=== PATIENT | female | born 1970 | race American Indian/Alaskan Native ===

== ENCOUNTER 2017-08-30 15:54 | Emergency (ER) | payer SELFPAY | END 2017-08-30 16:00 | disposition left against medical advice (07) | LOC: ED 15:54 | DX: M27.2 Inflammatory conditions of jaws (principal); Z53.21 Procedure and treatment not carried out due to patient leaving prior to being seen by health care provider ==

== ENCOUNTER 2018-12-01 04:01 | Inpatient (IN) | payer SELFPAY ==
[2018-12-01] MEDS ORDERED: ZOFRAN IV ONE (04:22)
[2018-12-01] MEDS ORDERED: HEPARIN 10,000 UNITS/10 ML IV ONE (04:22)
[2018-12-01] MEDS ORDERED: PLAVIX PO ONE ×3 (04:22→06:00)
--- NOTE | 2018-12-01 04:24 | Emergency Department Report ---
ED Chest Pain HPI - General Chief Complaint: Chest Pain Stated Complaint: STEMI Time Seen by Provider: 12/01/18 04:17 Source: patient, EMS Mode of arrival: Stretcher Limitations: Physical Limitation - History of Present Illness Initial Comments: 48-year-old female who appears medical history presents to ED with chest pain. Patient states she was awoken from sleep approximately one hour ago with chest pain, nonradiating. Also reports nausea. Upon EMS arrival EKG was signed and transmitted which showed a inferolateral STEMI. EMS reports systolic BP in the 90s in the field. Patient given Aspirin and IV fluids. Currently reporting 06/15 substernal chest pain. Patient reports tobacco use. MD Complaint: chest pain -: hour(s) (1) Onset: awoke with symptoms Pain Location: substernal Pain Radiation: none Severity: severe Severity scale (0 -10): 10 Quality: tightness Consistency: constant Improves With: nothing Worsens With: nothing re: nausea, dyspnea. denies: vomting Treatments Prior to Arrival: aspirin, oxygen - Related Data Previous Rx's Medication Instructions Recorded Last Taken Type HYDROcodone/APAP 7.5-325 [[place] 1 each PO Q4-6H PRN #20 tablet 08/27/14 Unknown Rx 7.5-325 mg TAB] Sulfamethoxazole/Trimethoprim 1 each PO Q12H #20 tablet 08/27/14 Unknown Rx [Bactrim Ds] Ibuprofen [Motrin] 800 mg PO Q8HR PRN #20 tablet 08/28/16 Unknown Rx Penicillin Vk [Veetids TAB] 250 mg PO QID #28 tablet 08/28/16 Unknown Rx Allergies Allergy/AdvReac Type Severity Reaction Status Date / Time iodine Allergy Unknown Verified 08/27/14 13:28 Heart Score - HEART Score History: Highly suspicious EKG: Significant ST-depression Age: 45-65 Risk factors: No known risk factors Troponin: < normal limit HEART Score: 5 - Critical Actions Critical Actions: 4-6 pts:12-16.6% risk of adverse cardiac event. Should be admitted ED Review of Systems ROS: Stated complaint: STEMI Other details as noted in HPI Comment: All other systems reviewed and negative Respiratory: shortness of breath Cardiovascular: chest pain Gastrointestinal: nausea ED Past Medical Hx - Past Medical History Previous Medical History?: No - Surgical History Past Surgical History?: No - Social History Smoking Status: Current Every Day Smoker Substance Use Type: Alcohol, Marijuana - Medications Home Medications: Home Medications Medication Instructions Recorded Confirmed Last Taken Type HYDROcodone/APAP 7.5-325 [[place] 1 each PO Q4-6H PRN #20 tablet 08/27/14 Unknown Rx 7.5-325 mg TAB] Sulfamethoxazole/Trimethoprim 1 each PO Q12H #20 tablet 08/27/14 Unknown Rx [Bactrim Ds] Ibuprofen [Motrin] 800 mg PO Q8HR PRN #20 tablet 08/28/16 Unknown Rx Penicillin Vk [Veetids TAB] 250 mg PO QID #28 tablet 08/28/16 Unknown Rx ED Physical Exam - General Limitations: Physical Limitation General appearance: alert, other (appears uncomfortable) - Head Head exam: Present: atraumatic, normocephalic - Eye Eye exam: Present: normal appearance - ENT ENT exam: Present: mucous membranes moist - Neck Neck exam: Present: normal inspection - Respiratory Respiratory exam: Present: normal lung sounds bilaterally. Absent: respiratory distress - Cardiovascular Cardiovascular Exam: Present: normal rhythm, bradycardia - GI/Abdominal GI/Abdominal exam: Present: soft. Absent: distended, tenderness - Extremities Exam Extremities exam: Present: normal inspection - Neurological Exam Neurological exam: Present: alert, oriented X3 - Psychiatric Psychiatric exam: Present: normal affect, normal mood - Skin Skin exam: Present: warm, dry, intact, normal color ED Course Vital Signs 12/01/18 04:11 Pulse Rate 60 Respiratory 14 Rate Blood Pressure 101/62 [Right] O2 Sat by Pulse 100 Oximetry ED Medical Decision Making - Lab Data Result diagrams: 12/01/18 04:15 12/01/18 04:15 - EKG Data -: EKG Interpreted by [place] EKG shows normal: sinus rhythm, axis, intervals, QRS complexes Rate: bradycardia (rate 51) - EKG Data Interpretation: acute AR (inferolateral), other (ST elevations in lead II, III, aVF, V3-6; ST depressions I, aVL) - Medical Decision Making 48-year-old female with acute AR, ST elevations seen in inferior lateral leads. Prehospital code STEMI was called. At that time EKG was sent to auto body service mechanic, Dr. Cutler. Upon ED arrival while patient remained bradycardic into the 50s, with normal low blood pressure, systolic BP in the 100s. Patient was given aspirin by EMS. Heparin bolus given and heparin drip initiated here in ED. IV fluids given. Patient was also given 600 mg of Plavix. Patient was immediately transported to the laborer filter plant for interventional cardiac cath. Dr. Benitez, hospitalist, made aware of patient. - Differential Diagnosis STEMI Critical Care Time: Yes Critical care time in (mins) excluding proc time.: 35 Critical care attestation.: If time is entered above; I have spent that time in minutes in the direct care of this critically ill patient, excluding procedure time. Critical Care Time: 35 minutes ED Disposition Clinical Impression: STEMI (ST elevation myocardial infarction) Disposition: -09 OP ADMIT IP TO THIS HOSP Is pt being admited?: Yes Condition: Critical Referrals: LUKE AQUINO MD [Primary Care Provider] - 3-5 Days Time of Disposition: 04:29
[2018-12-01 04:29] LABS: Hematocrit 41.8 % (30.3-42.9); Mean Corpuscular HGB Conc 34 % (30-34); Mean Corpuscular Volume 95 fl (79-97); Platelet Count 343 K/mm3 (140-440); Red Cell Distribution Width 13.1 % (13.2-15.2)
[2018-12-01] MEDS ORDERED: ATROPINE 0.1% (CARDIAC) ONE ×2 (04:29→04:34)
[2018-12-01] MEDS ORDERED: HEPARIN 10,000 UNITS/10 ML ONE (04:32)
[2018-12-01] MEDS ORDERED: HEPARIN/NS 5000 UNIT/500ML(CATH LAB) 1,000 ML IR ONE (04:32)
[2018-12-01 04:33] LABS: INR 1.02 (0.87-1.13)
[2018-12-01] MEDS ORDERED: XYLOCAINE CARDIAC IV ONE (04:33)
[2018-12-01] MEDS ORDERED: INTROPIN DRIP 800 MG/D5W 250 ML 800 MG/250 ML BAG IV ONE (04:33)
[2018-12-01] MEDS ORDERED: NITROGLYCERIN SYRINGE 0 ML ONE (04:33)
[2018-12-01] MEDS ORDERED: XYLOCAINE 2% INFILTRATI ONE (04:33)
[2018-12-01] MEDS ORDERED: ADRENALIN ONE (04:34)
[2018-12-01] MEDS ORDERED: NEO SYNEPHRINE/NS Syringe(OR USE) IV ONE (04:34)
[2018-12-01] MEDS ORDERED: BENADRYL ONE (04:39)
[2018-12-01] MEDS ORDERED: SOLU-Medrol ONE (04:40)
[2018-12-01 04:43] LABS: Partial Thromboplastin Time 80.1 Sec. (24.2-36.6)
[2018-12-01] MEDS ORDERED: PEPCID IV ONE (04:45)
[2018-12-01] MEDS ORDERED: AGGRASTAT DRIP (12.5 MG/250 ML) 12,500 MCG/250 ML BAG IV ONE (04:54)
[2018-12-01] MEDS ORDERED: HEPARIN/NS 5000 UNIT/500ML(CATH LAB) 500 ML IR ONE ×3 (04:54→05:14)
[2018-12-01 04:58] LABS: BUN/Creatinine Ratio 11; Blood Urea Nitrogen 8 mg/dL (7-17)
[2018-12-01] MEDS ORDERED: HEPARIN/ 0.45% NACL-25,000 UNIT/500 ML 25,000 UNIT/500 ML BAG IV SCH (05:00)
[2018-12-01 05:07] LABS: Hemolysis Index 0
[2018-12-01 05:08] LABS: Calcium QNS mg/dL (8.4-10.2)
[2018-12-01] MEDS ORDERED: NACL 0.9% 1000 ML 1,000 ML ONE (05:10)
[2018-12-01 05:50] LABS: Basophils % (Manual) 0 % (0.0-1.8); Eosinophils % (Manual) 0 % (0.0-4.3); Total Cells Counted 100
[2018-12-01 05:51] LABS: RBC Morphology Normal
[2018-12-01] MEDS: NACL 0.9% 1000 ML 1,000 ML IV SCH ×2 (06:00→18:24)
[2018-12-01] MEDS: AGGRASTAT DRIP (12.5 MG/250 ML) 12,500 MCG/250 ML BAG IV SCH ×2 (06:00→12:51)
[2018-12-01] MEDS ORDERED: ZOFRAN IV PRN (06:28)
[2018-12-01] MEDS ORDERED: MORPHINE IV PRN ×2 (06:28→07:05)
[2018-12-01] MEDS ORDERED: D50W (25GM) Syringe IV PRN (06:31)
--- NOTE | 2018-12-01 07:51 | Progress Note ---
Subjective Date of service: 12/01/18 Interval history: H and P, cath report dictated. Pt is revisited in CCU and doing well. Course and plan of care d/w pt, family, and rn. Objective Vital Signs Temp Pulse Resp BP BP Pulse Ox 12/01/18 07:30 96 H 26 H 162/93 100 12/01/18 07:20 91 H 18 162/93 100 12/01/18 07:10 75 21 165/93 100 12/01/18 07:00 79 22 165/93 99 12/01/18 06:52 97.8 F 12/01/18 06:50 84 22 148/94 98 12/01/18 06:40 63 14 159/96 99 12/01/18 06:30 69 22 169/102 100 12/01/18 06:20 82 23 12/01/18 06:16 68 12/01/18 04:11 60 14 101/62 100 - Labs and Meds Coagulation 12/01/18 Range/Units 04:15 PT 13.8 (12.2-14.9) Sec. INR 1.02 (0.87-1.13) APTT 80.1 H* (24.2-36.6) Sec. CBC 12/01/18 Range/Units 04:15 WBC 8.3 (4.5-11.0) K/mm3 RBC 4.40 (3.65-5.03) M/mm3 Hgb 14.0 (10.1-14.3) gm/dl Hct 41.8 (30.3-42.9) % Plt Count 343 (140-440) K/mm3 Lymph # Last Ironer Comprehensive Metabolic Panel 12/01/18 Range/Units 04:15 Sodium 143 (137-145) mmol/L Potassium 3.6 (3.6-5.0) mmol/L Chloride 108.0 H (98-107) mmol/L Carbon Dioxide 23 (22-30) mmol/L BUN 8 (7-17) mg/dL Creatinine 0.7 (0.7-1.2) mg/dL Glucose 243 H (65-100) mg/dL Calcium QNS
--- NOTE | 2018-12-01 08:14 | History and Physical Report ---
CHIEF COMPLAINT: Chest pain. HISTORY OF PRESENTING ILLNESS: The patient is a 48-year-old female who started having sharp chest pain going on for some hours prior to presentation. Pain did not radiate and was associated with shortness of breath, nausea, and also diaphoresis. EMS was called, and on arrival, EKG was done that shows ST elevation, STEMI. The patient was given IV fluid and aspirin and transported to the Emergency Room. PAST MEDICAL HISTORY: Pertinent for diabetes mellitus. PAST SURGICAL HISTORY: Unremarkable. FAMILY HISTORY: Noncontributory. SOCIAL HISTORY: The patient smokes cigarettes, drinks alcohol, and uses marijuana. MEDICATIONS: The patient is on [place] 7.5/325 mg 1 by mouth every 4 hours as needed for pain. Also, the patient is on ibuprofen 800 mg by mouth every 8 hours as needed for pain. ALLERGIES: THE PATIENT IS ALLERGIC TO IODINE. REVIEW OF SYSTEMS: CONSTITUTIONAL: There is no fever, no chills. Diaphoresis is present. HEENT: There is no headache or sore throat. CARDIOVASCULAR SYSTEM: Chest pain is present. No orthopnea. RESPIRATORY SYSTEM: Shortness of breath is present. No cough. GASTROINTESTINAL SYSTEM: There is nausea and vomiting, but no abdominal pain, diarrhea, or constipation. NEUROLOGICAL SYSTEM: There is no numbness, no dizziness, no altered mental status. MUSCULOSKELETAL SYSTEM: There is no joint pain or swelling. DERMATOLOGICAL SYSTEM: There is no skin rash or itching. GENITOURINARY SYSTEM: There is no dysuria, hematuria, or flank pain. Rest of system review is normal. PHYSICAL EXAMINATION: GENERAL: At the time of exam, the patient was found to be alert, oriented x 3, not in acute distress. VITAL SIGNS: At the initial time of presentation showed normal temperature with pulse of 60, respirations 14, blood pressure 101/62, O2 sat of 100% on room air. HEENT: Showed pupils to be equal, round, reactive to light and accommodation. Extraocular muscles were intact. NECK: Supple with no JVD or carotid bruit. CARDIOVASCULAR SYSTEM: Showed normal first and second heart sounds with no gallops or murmurs. RESPIRATORY SYSTEM: Showed good air entry on both sides of the lung with no abnormal breath sounds. GASTROINTESTINAL SYSTEM: Showed abdomen to be full, soft, nontender with no organomegaly or rigidity. PELVIC: The patient's right groin area showed dressing where the patient has already had cardiac catheterization. NEUROLOGICAL SYSTEM: Showed no focal deficit. MUSCULOSKELETAL SYSTEM: Showed no joint swelling or tenderness. DERMATOLOGICAL SYSTEM: Showed no skin rash. GENITOURINARY SYSTEM: Showing no costovertebral angle tenderness. PERTINENT LABORATORY DATA AND IMAGING STUDIES. The patient has CBC done that came back unremarkable except for CBC differential that showed high lymphocyte count of 49%. The patient's coagulation studies show high PTT of 80 and the patient's chemistry showed elevated blood glucose level of 243 with normal troponin level. DIAGNOSIS: ST-elevation myocardial infarction. PLAN OF CARE: 1. The patient will be admitted to ICU having had cardiac catheterization done by the hardware technician. 2. The patient will continue Cardiology consult with Dr. Cutler who has already done the cardiac cath with some orders in place for the patient. 3. The patient will be on IV Zofran 4 mg every 8 hours as needed for nausea and vomiting. 4. The patient will be on IV morphine 2 mg every 3 hours as needed for pain. 5. The patient will be on IV normal saline at 75 mL an hour. 6. The patient will continue on the standing orders given by the Cardiology. 7. The patient will be on Accu-Chek q. 6 hours followed by low-dose sliding scale using Regular insulin covering. JOB# [id number] OCN/NTS
--- NOTE | 2018-12-01 08:35 | Cardiac Catherization Report ---
INDICATION FOR PROCEDURE: Ms. Chapman is a pleasant 48-year-old female who presents here with several hours of chest pain, inferior ST elevation, bradycardia and hypotension. PROCEDURE IN DETAIL: The patient was brought to the dairy and food laboratory assistant in urgent fashion, prepped and draped in sterile fashion, 8 mL of 2% lidocaine used to anesthetize the right groin. A standard 6-Amharic sheath placed in the right common femoral artery via modified Seldinger technique. Standard 7-Amharic sheath used to cannulate the right femoral vein. Given bradycardia and hypotension, we opened up the patient's fluid. She has been loaded with heparin, aspirin, Plavix. A balloon tipped temporary pacemaker was placed in the right ventricular apex under fluoroscopic guidance, functioning normally. Backup heart rate set at 50. Next, we turned our attention to left heart cath. A JL4 catheter used to engage the left main. No dampening or ventricularization. Cineangiography performed in all projections. Next, a JR4 guide used to engage the right groin. No dampening or ventricularization. Cineangiography performed in all projections. See PCI details. After PCI, the JR4 guide was passed across the aortic valve over a wire under fluoroscopic guidance. Left ventriculography performed in 30-degree CASILLAS projection via hand injections. Catheter flushed. Manual pullback performed with continuous pressure monitoring. DATA: The patient was initially bradycardic with heart rates in the 40s and 50s. Aortic pressure was initially in the 90s and 100 systolic. Post-PCI aortic pressure is 160/90. LV pressure is 160. LVP of 20 mmHg. Left ventriculography reveals severe inferior dyskinesis with an estimated ejection fraction of 40% to 45%. No significant mitral regurgitation. No evidence of aortic stenosis. The patient also from a rhythm standpoint had multiple episodes of AIVR, nonsustained VT. 30 minutes critical care time was spent monitoring this. CORONARY ANATOMY: Right coronary reveals severe subtotal occlusion in the proximal segment with heavy thrombus burden in the proximal, mid and distal right coronary. MILV[place] 2 flow was identified. Left main without significant disease, bifurcates to left anterior descending and left circumflex. Left circumflex, moderate sized vessel, courses AV groove. No significant disease. LAD is a moderate sized vessel, courses anterior intergroove, wraps around the apex. No significant disease of LAD, diagonal or circumflex system. At this point, we turned our attention to PCI. A JR4 guide was used to engage the right coronary without difficulty. The patient started on Aggrastat, already on heparin, aspirin and Plavix. Given the heavy thrombus burden, Aggrastat drip also started. Once labs were confirmed to be okay, I used a [place] wire to cross the lesion without difficulty. We used a 2.5 x 12 balloon to dilate the proximal vessel. This improved flow, but distal thrombus is noted now and the thrombus moved distally. Again, there was heavy thrombus burden. At this point, I decided to use AngioJet rheolytic thrombectomy. Multiple passes were made proximally. We used a double wire technique to use AngioJet distally. 4-5 passes were made distally. Significant improvement, however, the clot moved a bit distally into the right PDA. Still clot burden despite multiple passes of AngioJet. At this point, I proceeded with PCI of the culprit vessel with a 3.5 x 22 Resolute [place] drug-eluting stent at 12 DONNA for 30 seconds. Excellent angiographic result. Next, there remains a distal cutoff. Thus, I decided to take a different approach and used manual thrombectomy using [place] catheter. Multiple passes were made distally with minimal improvement of this clot. Next, intravascular ultrasound was performed and reveals a well-apposed and well expanded stent. No other significant disease in the right coronary. The final angiogram reveals excellent result. A very distal right PDA cut off with thrombus. Again, despite multiple attempts with AngioJet and manual thrombectomy/[place] unable to improve this. We will continue Aggrastat. Chest pain is significantly resolved. EKG reveals continued ST elevation. I directly supervised the administration of moderate sedation from 4:39 a.m. to 5:34 a.m. CONCLUSIONS: 1. Complex heavy thrombus burden, atherothrombotic occlusion of the proximal right coronary. Successful IVUS guided and rheolytic thrombectomy/manual thrombectomy guided primary PCI, placement of drug-eluting stent ([place] Resolute 3.5 x 22) with excellent final angiographic and ultrasonographic results. 2. Heavy thrombus burden, small distal area of thrombus remains despite multiple passes of manual thrombectomy and rheolytic thrombectomy. Continue Aggrastat therapy, aspirin and Plavix. The patient is clinically significantly improved. 3. No significant coronary artery disease in left system. 4. Left ventriculography reveals inferior dyskinesis with overall ejection fraction of 40% to 45%. 5. Successful fluoroscopic-guided placement of a balloon tipped temporary venous pacemaker via the right femoral vein. 6. No evidence of aortic stenosis. At this point, the patient is clinically and electrically improved. She is still having some AIVR. EKG reveals a recalcitrant ST elevation inferiorly. At this point, we will continue aspirin, Plavix, IIb/IIIa. If her blood pressure tolerates, we will start low dose beta guera. Pull sheath once ACT less than 170. Will consider pulling the pacemaker if she remains electrically stable in several hours. Results of procedure were explained to the patient and family. All questions and concerns were addressed. The patient will be monitored closely in ICU. JOB# [id number] RANDAL/BIB
[2018-12-01] MEDS: COREG PO SCH ×2 (10:02→21:47)
[2018-12-01] MEDS: PLAVIX PO SCH (10:02)
[2018-12-01] MEDS: ECOTRIN PO SCH (10:02)
[2018-12-01] MEDS: HumuLIN R SUB-Q SCH (12:00)
--- NOTE | 2018-12-01 12:19 | Event Note ---
Date: 12/01/18 Patient seen and examined, awaiting Echo otherwise stable, no new complaints. Discussed with Nursing staff. Continue current management as directed by cardiology
--- NOTE | 2018-12-01 12:47 | Consultation ---
History of Present Illness Consult date: 12/01/18 Requesting physician: NANCY SANCHEZ Reason for consult: other (STEMI) History of present illness: PULMONARY/CCM CONSULT NOTE (Full dictation # [id number]) Please see dictated notes for full details Medications and Allergies Allergies Allergy/AdvReac Type Severity Reaction Status Date / Time iodine Allergy Unknown Verified 08/27/14 13:28 Home Medications Medication Instructions Recorded Confirmed Last Taken Type Aspirin EC [Aspirin Enteric Coated 325 mg PO QDAY #30 tablet 12/03/18 Unknown Rx TAB] AtorvaSTATin [Lipitor] 80 mg PO QHS #90 tablet 12/03/18 Unknown Rx Carvedilol [Coreg] 3.125 mg PO BID #60 tablet 12/03/18 Unknown Rx Clopidogrel [Plavix] 75 mg PO QDAY #30 tablet 12/03/18 Unknown Rx Loperamide [Imodium] 2 mg PO Q2H PRN #30 capsule 12/03/18 Unknown Rx Active Meds: Active Medications Acetaminophen (Tylenol) 650 mg PO Q4H PRN PRN Reason: Fever >101 Aspirin (Ecotrin) 325 mg PO QDAY [facility] Last Admin: 12/01/18 10:02 Dose: 325 mg Documented by: Atorvastatin Calcium (Lipitor) 80 mg PO QHS [facility] Carvedilol (Coreg) 3.125 mg PO BID [facility] Last Admin: 12/01/18 10:02 Dose: 3.125 mg Documented by: Clopidogrel Bisulfate (Plavix) 75 mg PO QDAY [facility] Last Admin: 12/01/18 10:02 Dose: 75 mg Documented by: Dextrose (D50w (25gm) Syringe) 50 ml IV PRN PRN PRN Reason: Hypoglycemia Heparin Sodium/Sodium Chloride (Heparin/ 0.45% Nacl-25,000 Unit/500 Ml) 25,000 unit in 500 mls @ 20 mls/hr IV TITRATE JORDYN; Protocol Tirofiban/Sodium Chloride (Aggrastat Drip (12.5 Mg/250 Ml)) 12,500 mcg in 250 mls @ 18 mls/hr IV DIRECT JORDYN; Protocol Stop: 12/02/18 00:00 Last Admin: 12/01/18 06:00 Dose: 18 mls/hr Documented by: Sodium Chloride (Nacl 0.9% 1000 Ml) 1,000 mls @ 75 mls/hr IV DIRECT JORDYN Last Admin: 12/01/18 06:00 Dose: 75 mls/hr Documented by: Insulin Human Regular (Humulin R) 0 units SUB-Q Q6HR JORDYN; Protocol Morphine Sulfate (Morphine) 2 mg IV Q3H PRN PRN Reason: Pain, Moderate (4-6) Ondansetron HCl (Zofran) 4 mg IV Q8H PRN PRN Reason: Nausea And Vomiting Physical Examination Vital signs: Vital Signs Pulse Resp BP Pulse Ox 60 14 101/62 100 12/01/18 04:11 12/01/18 04:11 12/01/18 04:11 12/01/18 04:11 Results - Laboratory Findings CBC and BMP: 12/03/18 05:05 12/03/18 11:53 PT/INR, D-dimer PT 13.8 Sec. (12.2-14.9) 12/01/18 04:15 INR 1.02 (0.87-1.13) 12/01/18 04:15 Abnormal lab findings: Abnormal Labs 12/01/18 12/01/18 12/01/18 04:15 04:15 04:15 RDW 13.1 L Lymphocytes % (Manual) 49.0 H APTT 80.1 H* Chloride 108.0 H Glucose 243 H POC Glucose Troponin T 12/01/18 12/01/18 10:33 12:44 RDW Lymphocytes % (Manual) APTT Chloride Glucose POC Glucose 137 H Troponin T 3.120 H* D
[2018-12-01 13:06] LABS: Chol/HDL Ratio 3.17 %
--- NOTE | 2018-12-01 14:04 | XRay Report ---
FINAL REPORT EXAM: XR CHEST 1V AP HISTORY: chest pain TECHNIQUE: Frontal chest radiograph. PRIORS: None. FINDINGS: The cardiomediastinal silhouette is normal. No focal consolidation. No pleural effusion. No pneumothorax. No acute osseous abnormality. IMPRESSION: No acute cardiopulmonary process.
--- NOTE | 2018-12-01 14:41 | Consultation ---
CARDIOLOGY CONSULTATION REFERRING PHYSICIAN: Dr. Martel in the Emergency Room. REASON FOR CONSULTATION: Advice regarding ST elevation myocardial infarction. HISTORY OF PRESENT ILLNESS: The patient is a pleasant 48-year-old -[place] female who is not plugged in the medical system and has no known medical history aside from tobacco abuse, presents with 1-2 hours of crushing chest pain. She is brought by EMS, found to have bradycardia, inferior ST elevation, and hypotension. STEMI protocol was activated. She does have nausea and has not vomited. Does have diaphoresis. No abdominal pain, hematochezia, melena, hemoptysis, or hematemesis. No history of bleeding. No blurred vision, headache, fevers, chills, or rash. She does have an iodine allergy. She was appropriately premedicated with H1, H2 blockade as well as Solu-Medrol. STEMI protocol was activated. PAST MEDICAL HISTORY: None known. SOCIAL HISTORY: Active tobacco abuse, marijuana use. FAMILY HISTORY: Positive for coronary artery disease. ALLERGIES: IODINE. REVIEW OF SYSTEMS: As per HPI. PHYSICAL EXAMINATION: VITAL SIGNS: On approach, blood pressure is 90/60, heart rate in the 50s. O2 sats 98% on room air. GENERAL: The patient is in mild distress. HEENT: Sclerae icteric. NECK: Supple, no masses, no JVD. CHEST: Clear to auscultation bilaterally. Good air movement. CARDIOVASCULAR: Regular S1, S2. ABDOMEN: Soft, nontender, nondistended. Normoactive bowel sounds in all 4 quadrants. No mass or bruits. EXTREMITIES: No cyanosis, clubbing, edema. Good peripheral pulses. SKIN: Intact. No rashes. DATA: EKG reveals inferior ST elevation bradycardia. No labs are available. ASSESSMENT AND PLAN: In summary, the patient is a pleasant 48-year-old -[place] female: 1. Acute inferior ST elevation myocardial infarction complicated by bradycardia and hypotension. 2. Tobacco use. 3. Marijuana use. STEMI protocol has been initiated. The patient has been loaded with aspirin, Plavix and heparin. Further plans contingent on cardiac cath tech course: The patient is going for urgent left heart catheterization and possible PCI. JOB# [id number] SBM/NTS
[2018-12-01] MEDS ORDERED: TRIDIL DRIP 50MG/250ML 50 MG/250 ML BOTTLE IV SCH (15:00)
[2018-12-01] MEDS: TYLENOL PO PRN ×2 (16:03→22:50)
[2018-12-02] MEDS: HumuLIN R SUB-Q SCH ×6 (00:29→22:08)
[2018-12-02 03:33] LABS: Hematocrit 34.7 % (30.3-42.9); Hemoglobin 11.9 gm/dl (10.1-14.3)
[2018-12-02 03:53] LABS: BUN/Creatinine Ratio 20; Blood Urea Nitrogen 10 mg/dL (7-17); Calcium 9.1 mg/dL (8.4-10.2); Creatine Kinase MB 171.3 ng/mL (0.0-4.0); Hemolysis Index 0
[2018-12-02] MEDS: NACL 0.9% 1000 ML 1,000 ML IV SCH (07:55)
[2018-12-02] MEDS: ECOTRIN PO SCH (11:04)
[2018-12-02] MEDS: COREG PO SCH ×2 (11:04→22:04)
[2018-12-02] MEDS: PLAVIX PO SCH (11:04)
[2018-12-02] MEDS: TYLENOL PO PRN (11:12)
--- NOTE | 2018-12-02 12:32 | Progress Note ---
Assessment and Plan 48 yo AAF: 1. s/p inferior STEMI complicated by hypotension and bradycardia * s/p successful IVUS/tvp-guided and manual/rheolytic thrombectomy-assisted primary PCI w/ shanice * clinically vastly improved * cont asa/statin/plavix * nutrition consult * transfer to floor * right groin stable * f/u tte * won't uptitrate bb due to borderline sbp Subjective Date of service: 12/02/18 Interval history: feels much better Objective Vital Signs Temp Pulse Pulse Resp BP Pulse Ox 12/02/18 12:00 82 17 109/68 100 12/02/18 11:12 14 12/02/18 11:04 76 105/58 12/02/18 11:00 72 11 L 125/68 100 12/02/18 10:00 72 10 L 116/65 100 12/02/18 09:00 85 18 116/65 100 12/02/18 08:00 98.4 F 64 79 21 131/80 100 12/02/18 07:00 74 19 127/74 98 12/02/18 06:00 54 L 13 125/76 99 12/02/18 05:00 71 10 L 125/66 99 12/02/18 04:00 99.0 F 85 14 134/88 100 12/02/18 03:00 92 H 18 155/104 98 12/02/18 02:00 82 19 144/89 97 12/02/18 01:00 86 13 146/101 98 12/02/18 00:00 99.3 F 73 14 156/95 97 12/01/18 23:28 61 13 149/77 100 12/01/18 23:00 65 20 145/84 100 12/01/18 22:20 98 12/01/18 22:00 60 145/73 100 12/01/18 21:47 75 130/89 12/01/18 21:00 82 158/94 100 12/01/18 20:00 98.8 F 72 162/91 100 12/01/18 19:00 59 L 15 163/91 100 12/01/18 18:00 72 13 157/92 100 12/01/18 17:00 55 L 21 186/99 12/01/18 16:22 98.7 F 12/01/18 16:00 66 14 154/88 100 12/01/18 15:00 80 14 163/89 12/01/18 14:30 73 19 170/88 12/01/18 14:20 62 21 169/110 12/01/18 14:10 55 L 23 169/110 12/01/18 14:00 60 13 169/110 12/01/18 13:50 71 16 169/110 12/01/18 13:40 66 17 169/110 12/01/18 13:30 86 22 169/110 12/01/18 13:20 66 11 L 169/110 12/01/18 13:10 72 14 169/110 12/01/18 13:00 85 12 169/110 12/01/18 12:50 85 13 140/80 12/01/18 12:40 85 15 140/80 12/01/18 12:30 73 16 140/80 100 - Labs and Meds Cardiac Enzymes 12/02/18 Range/Units 03:13 CK-MB (CK-2) 171.3 H (0.0-4.0) ng/mL Lipids 12/01/18 Range/Units 10:33 Triglycerides 87 (2-149) mg/dL Cholesterol 184 (50-199) mg/dL HDL Cholesterol 58 (40-59) mg/dL Cholesterol/HDL Ratio 3.17 % CBC 12/02/18 Range/Units 03:13 Hgb 11.9 (10.1-14.3) gm/dl Hct 34.7 D (30.3-42.9) % Plt Count 320 (140-440) K/mm3 Comprehensive Metabolic Panel 12/02/18 Range/Units 03:13 Sodium 140 (137-145) mmol/L Potassium 3.5 L (3.6-5.0) mmol/L Chloride 106.6 (98-107) mmol/L Carbon Dioxide 25 (22-30) mmol/L BUN 10 (7-17) mg/dL Creatinine 0.5 L (0.7-1.2) mg/dL Glucose 114 H (65-100) mg/dL Calcium 9.1 (8.4-10.2) mg/dL
--- NOTE | 2018-12-02 12:42 | Event Note ---
Date: 12/02/18 Clinically stable s/p STEMI and PCI seen and examined - no acute issues - will re-evaluate as necessary
[2018-12-02] MEDS ORDERED: K-DUR PO ONE (13:26)
--- NOTE | 2018-12-02 13:26 | Progress Note ---
Assessment and Plan Assessment and plan: Patient is a 48 year old female with past medical hx of Diabetes Mellitus and tobacco abuse Presented with STEMI and underwent a successful IVUS/tvp-guided and manual/rheolytic thrombectomy-assisted primary PCI w/ shanice Chest pain with STEMI * IVUS/tvp-guided and manual/rheolytic thrombectomy-assisted primary PCI w/ shanice Tobacco use disorder Diabetes Mellitus Hypokalemia Bradycardia Hypotension Plan Clinically improved. Extensive education and counselling about tobacco abuse and associated risk Continue ASA/STATIN/PLAVIX Replace K Continue DM management DVT/GI prophy Ok to transfer to Cardiology Plan discussed with patient and family History Interval history: Patient is seen today for: Chest pain Seen and examined at bedside; 24hour events reviewed; nursing staff ; no adverse overnight events reported to me; Denies any chest pain, nausea, vomiting, diarrhea. Patient is status post cardiac cath. No fever noted blood pressure controlled Hospitalist Physical - Physical exam Narrative exam: VITAL SIGNS: Reviewed. GENERAL: The patient appeared well nourished and normally developed. Vital signs as documented. HEAD: No signs of head trauma. EYES: Pupils are equal. Extraocular motions intact. EARS: Hearing grossly intact. MOUTH: Oropharynx is normal. NECK: No adenopathy, no JVD. CHEST: Chest with clear breath sounds bilaterally. No wheezes, rales, or rhon chi. CARDIAC: Regular rate and rhythm. S1 and S2, without murmurs, gallops, or rubs . VASCULAR: No Edema. Peripheral pulses normal and equal in all extremities. ABDOMEN: Soft, without detectable tenderness. No sign of distention. No rebound or guarding, and no masses palpated. Bowel Sounds normal. MUSCULOSKELETAL: Good range of motion of all major joints. Extremities without clubbing, cyanosis or edema. NEUROLOGIC EXAM: Alert and oriented x 3. No focal sensory or strength deficits. Speech normal. Follows commands. PSYCHIATRIC: Mood normal. SKIN: No rash or lesions. - Constitutional Vitals: Temp Pulse Resp BP Pulse Ox 97.7 F 84 17 109/68 100 12/02/18 12:00 12/02/18 12:00 12/02/18 12:00 12/02/18 12:00 12/02/18 12:00 Results - Labs CBC & Chem 7: 12/02/18 03:13 12/02/18 03:13 Labs: Laboratory Last Values WBC 8.3 K/mm3 (4.5-11.0) 12/01/18 04:15 RBC 4.40 M/mm3 (3.65-5.03) 12/01/18 04:15 Hgb 11.9 gm/dl (10.1-14.3) 12/02/18 03:13 Hct 34.7 % (30.3-42.9) D 12/02/18 03:13 MCV 95 fl (79-97) 12/01/18 04:15 MCH 32 pg (28-32) 12/01/18 04:15 MCHC 34 % (30-34) 12/01/18 04:15 RDW 13.1 % (13.2-15.2) L 12/01/18 04:15 Plt Count 320 K/mm3 (140-440) 12/02/18 03:13 Lymph % (Auto) [employer] Prep[employer]ness Training Officer 12/01/18 04:15 Lymph # [employer]ness Training Officer 12/01/18 04:15 Add Manual Diff Complete 12/01/18 04:15 Total Counted 100 12/01/18 04:15 Seg Neuts % (Manual) 47.0 % (40.0-70.0) 12/01/18 04:15 Band Neutrophils % 0 % 12/01/18 04:15 Lymphocytes % (Manual) 49.0 % (13.4-35.0) H 12/01/18 04:15 Reactive Lymphs % (Man) 0 % 12/01/18 04:15 Monocytes % (Manual) 4.0 % (0.0-7.3) 12/01/18 04:15 Eosinophils % (Manual) 0 % (0.0-4.3) 12/01/18 04:15 Basophils % (Manual) 0 % (0.0-1.8) 12/01/18 04:15 Metamyelocytes % 0 % 12/01/18 04:15 Myelocytes % 0 % 12/01/18 04:15 Promyelocytes % 0 % 12/01/18 04:15 Blast Cells % 0 % 12/01/18 04:15 Nucleated RBC % Not Reportable 12/01/18 04:15 Seg Neutrophils # Man 3.9 K/mm3 (1.8-7.7) 12/01/18 04:15 Band Neutrophils # 0.0 K/mm3 12/01/18 04:15 Lymphocytes # (Manual) 4.1 K/mm3 (1.2-5.4) 12/01/18 04:15 Abs React Lymphs (Man) 0.0 K/mm3 12/01/18 04:15 Monocytes # (Manual) 0.3 K/mm3 (0.0-0.8) 12/01/18 04:15 Eosinophils # (Manual) 0.0 K/mm3 (0.0-0.4) 12/01/18 04:15 Basophils # (Manual) 0.0 K/mm3 (0.0-0.1) 12/01/18 04:15 Metamyelocytes # 0.0 K/mm3 12/01/18 04:15 Myelocytes # 0.0 K/mm3 12/01/18 04:15 Promyelocytes # 0.0 K/mm3 12/01/18 04:15 Blast Cells # 0.0 K/mm3 12/01/18 04:15 WBC Morphology Not Reportable 12/01/18 04:15 Hypersegmented Neuts Not Reportable 12/01/18 04:15 Hyposegmented Neuts Not Reportable 12/01/18 04:15 Hypogranular Neuts Not Reportable 12/01/18 04:15 Smudge Cells Not Reportable 12/01/18 04:15 Toxic Granulation Not Reportable 12/01/18 04:15 Toxic Vacuolation Not Reportable 12/01/18 04:15 Dohle Bodies Not Reportable 12/01/18 04:15 Pelger-Huet Anomaly Not Reportable 12/01/18 04:15 Karthik Rods Not Reportable 12/01/18 04:15 Platelet Estimate Appears normal 12/01/18 04:15 Clumped Platelets Not Reportable 12/01/18 04:15 Plt Clumps, EDTA Not Reportable 12/01/18 04:15 Large Platelets Not Reportable 12/01/18 04:15 Giant Platelets Not Reportable 12/01/18 04:15 Platelet Satelliting Not Reportable 12/01/18 04:15 Plt Morphology Comment Not Reportable 12/01/18 04:15 RBC Morphology Normal 12/01/18 04:15 Dimorphic RBCs Not Reportable 12/01/18 04:15 Polychromasia Not Reportable 12/01/18 04:15 Hypochromasia Not Reportable 12/01/18 04:15 Poikilocytosis Not Reportable 12/01/18 04:15 Anisocytosis Not Reportable 12/01/18 04:15 Microcytosis Not Reportable 12/01/18 04:15 Macrocytosis Not Reportable 12/01/18 04:15 Spherocytes Not Reportable 12/01/18 04:15 Pappenheimer Bodies Not Reportable 12/01/18 04:15 Sickle Cells Not Reportable 12/01/18 04:15 Target Cells Not Reportable 12/01/18 04:15 Tear Drop Cells Not Reportable 12/01/18 04:15 Ovalocytes Not Reportable 12/01/18 04:15 Helmet Cells Not Reportable 12/01/18 04:15 [place] Bodies Not Reportable 12/01/18 04:15 [place] Rings Not Reportable 12/01/18 04:15 [place] Cells Not Reportable 12/01/18 04:15 Bite Cells Not Reportable 12/01/18 04:15 Crenated Cell Not Reportable 12/01/18 04:15 Elliptocytes Not Reportable 12/01/18 04:15 Acanthocytes (Spur) Not Reportable 12/01/18 04:15 Rouleaux Not Reportable 12/01/18 04:15 Hemoglobin C Crystals Not Reportable 12/01/18 04:15 Schistocytes Not Reportable 12/01/18 04:15 Malaria parasites Not Reportable 12/01/18 04:15 Nhan Bodies Not Reportable 12/01/18 04:15 Hem Pathologist Commnt No 12/01/18 04:15 PT 13.8 Sec. (12.2-14.9) 12/01/18 04:15 INR 1.02 (0.87-1.13) 12/01/18 04:15 APTT 80.1 Sec. (24.2-36.6) H* 12/01/18 04:15 Activated Clotting Time 131 (74-137) 12/01/18 10:26 Sodium 140 mmol/L (137-145) 12/02/18 03:13 Potassium 3.5 mmol/L (3.6-5.0) L 12/02/18 03:13 Chloride 106.6 mmol/L (98-107) 12/02/18 03:13 Carbon Dioxide 25 mmol/L (22-30) 12/02/18 03:13 Anion Gap 12 mmol/L 12/02/18 03:13 BUN 10 mg/dL (7-17) 12/02/18 03:13 Creatinine 0.5 mg/dL (0.7-1.2) L 12/02/18 03:13 Estimated GFR > 60 ml/min 12/02/18 03:13 BUN/Creatinine Ratio 20 % 12/02/18 03:13 Glucose 114 mg/dL (65-100) H 12/02/18 03:13 POC Glucose 99 (70-105) 12/02/18 12:36 Calcium 9.1 mg/dL (8.4-10.2) 12/02/18 03:13 Total Creatine Kinase 2350 units/L (30-135) H 12/02/18 03:13 CK-MB (CK-2) 171.3 ng/mL (0.0-4.0) H 12/02/18 03:13 CK-MB (CK-2) Rel Index 7.2 (0-4) H 12/02/18 03:13 Troponin T 6.990 ng/mL (0.00-0.029) H* D 12/02/18 03:13 Triglycerides 87 mg/dL (2-149) 12/01/18 10:33 Cholesterol 184 mg/dL (50-199) 12/01/18 10:33 LDL Cholesterol Direct 127 mg/dL (50-130) 12/01/18 10:33 HDL Cholesterol 58 mg/dL (40-59) 12/01/18 10:33 Cholesterol/HDL Ratio 3.17 % 12/01/18 10:33
[2018-12-02 19:58] VITALS: BP 139/82
[2018-12-02] MEDS ORDERED: ALUM-MAG HYDROX-SIMETH 200-200-20MG/5ML PO PRN (21:38)
[2018-12-03 05:42] LABS: Hematocrit 33.8 % (30.3-42.9); Hemoglobin 11.4 gm/dl (10.1-14.3)
[2018-12-03] MEDS: HumuLIN R SUB-Q SCH ×2 (09:01→12:44)
[2018-12-03] MEDS: ECOTRIN PO SCH (09:31)
[2018-12-03] MEDS: COREG PO SCH (09:31)
[2018-12-03] MEDS: PLAVIX PO SCH (09:31)
--- NOTE | 2018-12-03 10:47 | Progress Note ---
Assessment and Plan s/p inferior STEMI complicated by hypotension and bradycardia s/p successful IVUS/tvp-guided and manual/rheolytic thrombectomy-assisted prim jada PCI w/ shanice currently stable cardiac status. cont present cardiac management. F/u BMP, Mg, thyroid profile in setting of NSVT. Diarrhea eval per primary - ruling out C.Diff. The patient has been seen in conjunction with Dr. Lo who agrees with the assessment and plan of care. - Patient Problems (1) STEMI (ST elevation myocardial infarction) Current Visit: Yes Status: Acute (2) CAD (coronary artery disease) Current Visit: Yes Status: Chronic (3) Stented coronary artery Current Visit: Yes Status: Chronic (4) Ischemic cardiomyopathy Current Visit: Yes Status: Chronic (5) Right ventricular systolic dysfunction Current Visit: Yes Status: Chronic (6) Diarrhea Current Visit: Yes Status: Acute Subjective Date of service: 12/03/18 Principal diagnosis: STEMI Interval history: pt resting in bed, no current cardiac complaints. c/o diarrhea overnight. tele reviewed - 7 beat NSVT noted overnight, pt asymptomatic. Objective Last Vital Signs Temp 98.1 F 12/02/18 19:42 Pulse 61 12/03/18 08:26 Resp 20 12/03/18 08:00 BP 139/82 12/02/18 22:04 Pulse Ox 100 12/02/18 20:06 - Physical Examination General: No Apparent Distress HEENT: Positive: PERRL, Normocephaly, Mucus Membranes Moist Neck: Positive: neck supple, trachea midline Cardiac: Positive: Reg Rate and Rhythm, S1/S2 Lungs: Positive: clear to auscultation Neuro: Positive: Grossly Intact Abdomen: Positive: Soft. Negative: Tender Skin: Negative: Rash, Wound Musculoskeletal: No Pain Extremities: Absent: edema - Labs and Meds CBC 12/03/18 Range/Units 05:05 Hgb 11.4 (10.1-14.3) gm/dl Hct 33.8 (30.3-42.9) % Plt Count 292 (140-440) K/mm3 - Imaging and Cardiology EKG: report reviewed, image reviewed Echo: report reviewed (EF 35-40%, RV systolic function severely reduced) Cardiac cath: report reviewed (thrombectomy and PCI of prox RCA, EF 40-45%, temporary pacemaker placed) - Telemetry EKG Rhythm: Sinus Rhythm
[2018-12-03] MEDS ORDERED: IMODIUM PO PRN (12:00)
[2018-12-03 12:56] LABS: BUN/Creatinine Ratio 17; Blood Urea Nitrogen 10 mg/dL (7-17); Calcium 9.1 mg/dL (8.4-10.2); Hemolysis Index 2
--- NOTE | 2018-12-03 14:00 | Progress Note ---
Assessment and Plan Patient alert, awake. resting on room air.No complaint of chest pain or shortness of breath. Patient has history of smoking 1/2 a pack 30 years. Counselled to stop smoking.Patient also has history of sleep apnea. Patient said she is going home to day. Can come to my office as out patient for pulmonary follow up. Recommend PFTs and sleep study as out patient. - Patient Problems (1) STEMI (ST elevation myocardial infarction) Status: Acute Plan to address problem: Management as per cardiology Patient said she has stent placement. (2) CAD (coronary artery disease) Status: Chronic Plan to address problem: Patient has stent placement. Management as per cardiology. (3) Ischemic cardiomyopathy Status: Chronic Plan to address problem: Management as per cardiology. (4) Right ventricular systolic dysfunction Status: Chronic Plan to address problem: PFTs and sleep study as out patient. Recommend to loose weight. Explained sleep hygeine. (5) Stented coronary artery Status: Chronic Plan to address problem: Management as per cardiology. (6) Diarrhea Status: Acute Plan to address problem: Management as per primary care. Subjective Date of service: 12/03/18 Principal diagnosis: STEMI Interval history: Patient alert, awake. resting on room air.No complaint of chest pain or shortness of breath. Patient has history of smoking 1/2 a pack 30 years. Counselled to stop smoking.Patient also has history of sleep apnea. Patient said she is going home to day. Can come to my office as out patient for pulmonary follow up. Recommend PFTs and sleep study as out patient. Objective Vital Signs - 12hr 12/03/18 12/03/18 12/03/18 08:00 08:26 13:57 Pulse Rate 61 Pulse Rate [ 61 Apical] Respiratory 20 Rate O2 Sat by Pulse 99 Oximetry Constitutional: no acute distress, alert Eyes: non-icteric ENT: oropharynx moist Neck: supple, no lymphadenopathy Ascultation: Bilateral: diminished breath sounds (Prolonged expiratory phase.) Cardiovascular: regular rate and rhythm Gastrointestinal: normoactive bowel sounds, soft, non-tender Integumentary: normal Extremities: no cyanosis, no edema Neurologic: normal mental status, non-focal exam, pupils equal and round, CN II- XII normal Psychiatric: mood appropriate CBC and BMP: 12/03/18 05:05 12/03/18 11:53 ABG, PT/INR, D-dimer: PT/INR, D-dimer PT 13.8 Sec. (12.2-14.9) 12/01/18 04:15 INR 1.02 (0.87-1.13) 12/01/18 04:15 Abnormal lab findings: Abnormal Labs 12/01/18 12/01/18 12/01/18 04:15 04:15 04:15 RDW 13.1 L Lymphocytes % (Manual) 49.0 H APTT 80.1 H* Activated Clotting Time Potassium Chloride 108.0 H Creatinine Glucose 243 H POC Glucose Total Creatine Kinase CK-MB (CK-2) CK-MB (CK-2) Rel Index Troponin T 12/01/18 12/01/18 12/01/18 04:48 05:25 10:33 RDW Lymphocytes % (Manual) APTT Activated Clotting Time 180 H 312 H Potassium Chloride Creatinine Glucose POC Glucose Total Creatine Kinase CK-MB (CK-2) CK-MB (CK-2) Rel Index Troponin T 3.120 H* D 12/01/18 12/01/18 12/01/18 12:44 18:08 23:51 RDW Lymphocytes % (Manual) APTT Activated Clotting Time Potassium Chloride Creatinine Glucose POC Glucose 137 H 126 H 108 H Total Creatine Kinase CK-MB (CK-2) CK-MB (CK-2) Rel Index Troponin T 12/02/18 12/02/18 12/03/18 03:13 06:21 11:53 RDW Lymphocytes % (Manual) APTT Activated Clotting Time Potassium 3.5 L Chloride Creatinine 0.5 L 0.6 L Glucose 114 H 107 H POC Glucose 116 H Total Creatine Kinase 2350 H CK-MB (CK-2) 171.3 H CK-MB (CK-2) Rel Index 7.2 H Troponin T 6.990 H* D Chest x-ray: report reviewed
--- NOTE | 2018-12-03 15:53 | Discharge Summary ---
Providers - Providers Date of Admission: 12/01/18 06:40 Attending physician: JULIETTE JONES MD 12/01/18 Consult to Cardiac Rehabilitation [CONS] Routine Reason For Exam: post pci 12/01/18 04:21 Consult to Cardiology [CONS] Stat Consulting Provider: NANCY SANCHEZ Reason For Exam: STEMI 12/01/18 07:55 Consult to Physician [CONS] Routine Comment: Consulting Provider: JULIETTE JONES Physician Instructions: Reason For Exam: stemi 12/01/18 07:56 Consult to Physician [CONS] Routine Comment: Consulting Provider: LESLI DORSEY Physician Instructions: Reason For Exam: stemi Primary care physician: LUKE AQUINO Hospitalization Reason for admission: STEMI Condition: Stable Hospital course: Patient is a 48 year old female with past medical hx of Diabetes Mellitus and tobacco abuse Presented with STEMI and underwent a successful IVUS/tvp-guided and manual/rheolytic thrombectomy-assisted primary PCI w/ shanice. Patient had extensive discussion about compliance with medications tobacco cessation. Patient had diarrhea while in the hospital this resolved spontaneously. She verablized understanding. Case management was consultd to Chest pain with STEMI * IVUS/tvp-guided and manual/rheolytic thrombectomy-assisted primary PCI w/ shanice Tobacco use disorder Diabetes Mellitus Hypokalemia Bradycardia Hypotension Disposition: DC-01 TO HOME OR SELFCARE Time spent for discharge: 35 MINS Core Measure Documentation - Palliative Care Palliative Care/ Comfort Measures: Not Applicable - Core Measures Any of the following diagnoses?: acute NC - Acute NC Discharge Requirements Aspirin at discharge: Yes NORMA/ARB for LVSD if EF <40%: Yes Beta guera at discharge: Yes Statin for LDL = or >100 mg/dl on DC: Yes Exam - Physical Exam Narrative exam: VITAL SIGNS: Reviewed. GENERAL: The patient appeared well nourished and normally developed. Vital signs as documented. HEAD: No signs of head trauma. EYES: Pupils are equal. Extraocular motions intact. EARS: Hearing grossly intact. MOUTH: Oropharynx is normal. NECK: No adenopathy, no JVD. CHEST: Chest with clear breath sounds bilaterally. No wheezes, rales, or rhonchi. CARDIAC: Regular rate and rhythm. S1 and S2, without murmurs, gallops, or rubs. VASCULAR: No Edema. Peripheral pulses normal and equal in all extremities. ABDOMEN: Soft, without detectable tenderness. No sign of distention. No rebound or guarding, and no masses palpated. Bowel Sounds normal. MUSCULOSKELETAL: Good range of motion of all major joints. Extremities without clubbing, cyanosis or edema. NEUROLOGIC EXAM: Alert and oriented x 3. No focal sensory or strength deficits. Speech normal. Follows commands. PSYCHIATRIC: Mood normal. SKIN: No rash or lesions. - Constitutional Vitals: Temp Pulse Resp BP Pulse Ox 98.1 F 61 20 139/82 99 12/02/18 19:42 12/03/18 08:26 12/03/18 08:00 12/02/18 22:04 12/03/18 13:57 Plan Activity: advance as tolerated, fall precautions Diet: low fat, low salt Special Instructions: smoking cessation Follow up with: LUKE AQUINO MD [Primary Care Provider] - 3-5 Days NANCY SANCHEZ MD [Staff Physician] - 14 Days Prescriptions: AtorvaSTATin [Lipitor] 80 mg PO QHS #90 tablet Aspirin EC [Aspirin Enteric Coated TAB] 325 mg PO QDAY #30 tablet Carvedilol [Coreg] 3.125 mg PO BID #60 tablet Clopidogrel [Plavix] 75 mg PO QDAY #30 tablet Loperamide [Imodium] 2 mg PO Q2H PRN #30 capsule PRN Reason: Diarrhea
--- NOTE | 2018-12-13 05:09 | Consultation ---
PULMONARY CRITICAL CARE CONSULTATION CONSULTING PHYSICIAN: Dr. Cutler. REASON FOR CONSULTATION: ICU admission, status post STEMI. CHIEF COMPLAINT AND HISTORY OF PRESENT ILLNESS: The patient is a 48-year-old obese -[place] female with past medical history significant amongst other things for this history of obesity who came into the Emergency Room complaining of chest pain that woke her up. She got into the ER 1 hour after the pain. She described it as nonradiating. She had some nausea. It was a very heavy substernal pain about 8/10. In the Emergency Room, evaluation included an EKG, which showed inferolateral ST elevation NC. ACS protocol and STEMI protocol was initiated and the Cardiology team was mobilized. They did see her and she was admitted to the Intensive Care Unit. I do believe there is a past medical history actually of diabetes. She was taken to the heart dental lab technician by Dr. Sanjay Cutler. She had what was described as a complex heavy thrombus burden. After a thrombotic occlusion of the proximal right coronary, a successful stent was placed. Left ventriculography revealed a very inferior dyskinesis with overall ejection fraction of 40-45%. She was brought into the Critical Care Unit for observation post-procedure. When I stopped by to see her, she was resting in bed. The pain was better, family was in room. She denied any nausea at that time. She had denied any cough or expectoration. She denies any fevers or chills. She denied any prior chest wall trauma. She denies any similar events. This really is as much of the history of presentation as I have. PAST MEDICAL HISTORY: Diabetes. PAST SURGICAL HISTORY: Unknown. MEDICATIONS: Medications she was on at the time I stopped by to see were reviewed. Pertinent medications included the following: She was on aspirin 325 mg p.o. daily, Lipitor 80 mg p.o. at bedtime, carvedilol 3.125 mg p.o. b.i.d., Plavix 75 mg p.o. daily, heparin was going according to protocol, I believe, Aggrastat drip had been going on earlier. She was also on insulin via her sliding scale as well as morphine 2 mg IV q 3 hours p.r.n. moderate pain. ALLERGIES: IODINE. Nature of this allergy is unknown. DIET: Morbidly obese. Denies acute weight loss or gain preceding few weeks to months. FAMILY AND SOCIAL HISTORY: Lives in the community. Denies alcohol abuse. She does drink socially. She admits to about a 79-ablr-cful tobacco smoking history. Denied IV drug use or abuse. REVIEW OF SYSTEMS: No loss of consciousness. No new onset seizures. No new onset focal weakness. No gross hematochezia. No gross melena, no dysuria, no hematuria. She denied polydipsia or polyuria. She denied heat or cold intolerance. She denied any aphasia. She denied any ear pain or ear discharge. Complete 13-system review of systems obtained. Pertinent positives and/or negatives as in body of the history above, otherwise they are noncontributory. PHYSICAL EXAMINATION: VITAL SIGNS: At initial presentation in the emergency room, she was afebrile, the first temperature I see is 97.8 degrees Fahrenheit with a pulse of 84, respiratory rate of 22, blood pressure 148/94, oxygen sats 98%, inspired oxygen concentration at that time was not recorded. GENERAL: She is an obese, middle-aged -[place] female, normocephalic, atraumatic, talking to me in full sentences without significant respiratory distress. HEAD, EYES, EARS, NOSE, AND THROAT: She is anicteric. No conjunctival erythema. Oropharynx was moist, is a Mallampati #3 oropharynx. NECK: No thyromegaly, no gross jugular venous distention, no palpable lymph nodes in the supraclavicular or submandibular lymph node chains. LUNGS: Auscultation of both lung abreu unremarkable. Lungs are clear bilaterally. HEART: Heart sounds 1 and 2 are heard. They were regular in rate and rhythm at the time of my evaluation, without rubs or murmurs. ABDOMEN: Soft, full, bowel sounds are positive, nontender. No palpable hepatosplenomegaly. EXTREMITIES: Without overt digital clubbing or cyanosis, no pedal edema. Dorsalis pedis pulses are palpable bilaterally. NEUROLOGIC: She is alert and oriented x 3. Pupils equal, round, about 4 mm, reactive to light. Extraocular muscle movements are intact. She moves all 4 extremities spontaneously. SKIN: Is of normal turgor without overt cellulitis or rash. LABORATORY DATA AND IMAGING: Laboratory data from my review, admission white cell count 8300, hemoglobin 14.3, hematocrit 41.8, platelet count 343. INR 1.02. Serum sodium 143, potassium 3.6, chloride 108, bicarbonate 23, BUN 8, creatinine 0.7, glucose 243. ____ initial was less than 0.01, the next troponin is 3.12. No microbiology studies for my review. A chest x-ray was done. I have reviewed the chest x-ray and essentially it shows borderline cardiomegaly, otherwise perhaps some element of hypoventilation, but without overt acute process, no pneumothorax, no focal infiltrate, no acute cardiopulmonary process really. ASSESSMENT: 1. ST elevation myocardial infarction. 2. Chest pain. 3. Morbid obesity. 4. History of diabetes. 5. Tobacco use disorder. PLAN: She is status post heart catheterization, hemodynamically stable. I will defer to Cardiology for post-cath management. She has been started appropriately on secondary prevention with antilipid therapy and antiplatelet therapy. Weight loss has been counseled. Tobacco abstinence has been strongly counseled. I have also counseled her that she needs to get evaluated for obstructive sleep apnea and treat that if she is diagnosed with the disease. Otherwise, she will be placed on GI prophylaxis as well as DVT prophylaxis. Flu and pneumonia vaccination will be addressed per protocol. I do feel she is stable to transfer to telemetry floor. I will defer to the head sawyer when they do reevaluate her. Thank you very much for the consult, Dr. Cutler. We will follow along. We will make further recommendations as picture progresses/becomes clearer. JOB# [id number] SHERIN/BIB
== END 2018-12-03 16:35 | disposition home or self-care (01) | DRG 247 ==
LOC: ED 04:01 → CC1 06:40 → 4A 12-02 16:03
PROVIDERS: ADMIT Internal Medicine; ATTEND Internal Medicine
PROC: 027034Z Dilation of Coronary Artery, One Artery with Drug-eluting Intraluminal Device, Percutaneous Approach (ICD-10-PCS; principal; 2018-12-01)
PROC: 02C03ZZ Extirpation of Matter from Coronary Artery, One Artery, Percutaneous Approach (ICD-10-PCS; 2018-12-01)
PROC: B240ZZ3 Ultrasonography of Single Coronary Artery, Intravascular (ICD-10-PCS; 2018-12-01)
PROC: 4A023N7 Measurement of Cardiac Sampling and Pressure, Left Heart, Percutaneous Approach (ICD-10-PCS; 2018-12-01)
PROC: B2111ZZ Fluoroscopy of Multiple Coronary Arteries using Low Osmolar Contrast (ICD-10-PCS; 2018-12-01)
PROC: B2151ZZ Fluoroscopy of Left Heart using Low Osmolar Contrast (ICD-10-PCS; 2018-12-01)
DX: I21.19 ST elevation (STEMI) myocardial infarction involving other coronary artery of inferior wall (principal); E11.9 Type 2 diabetes mellitus without complications; F12.90 Cannabis use, unspecified, uncomplicated; F17.210 Nicotine dependence, cigarettes, uncomplicated; R00.1 Bradycardia, unspecified; E87.6 Hypokalemia; I95.9 Hypotension, unspecified; R19.7 Diarrhea, unspecified; Z71.6 Tobacco abuse counseling; Z91.041 Radiographic dye allergy status; Z82.49 Family history of ischemic heart disease and other diseases of the circulatory system; Z79.84 Long term (current) use of oral hypoglycemic drugs
CPT/HCPCS: 33210; 36415; 71045; 80048; 80061; 82550; 82553; 82962; 83735; 84439; 84443; 84484; 85007; 85014; 85018; 85025; 85049; 85347; 85610; 85730; 92941; 92978; 93005; 93010; 93306; 93458; 94760; 99406; G0378; A9270-GY; C1725; C1753; C1757; C1769; C1874; C1887; C1894; C9606; J0171; J0461; J1200; J1265; J1644; J2001; J2370; J2930; J3246; J7030; Q9967

== ENCOUNTER 2018-12-26 15:10 | Emergency (ER) | payer OTHER ==
[2018-12-26 15:32] VITALS: BP 104/69
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
== END 2018-12-26 17:02 | disposition home or self-care (01) ==
LOC: ED 15:10
DX: M54.2 Cervicalgia (principal); M54.5 Low back pain; M25.561 Pain in right knee; M25.562 Pain in left knee; M79.10 Myalgia, unspecified site; I10 Essential (primary) hypertension; Z91.041 Radiographic dye allergy status; Z79.82 Long term (current) use of aspirin; Z87.891 Personal history of nicotine dependence; V89.0XXA Person injured in unspecified motor-vehicle accident, nontraffic, initial encounter; Y93.89 Activity, other specified; Y92.488 Other paved roadways as the place of occurrence of the external cause; Y99.8 Other external cause status
CPT/HCPCS: 71111; 72040; 93005; 93010; 99283

== ENCOUNTER 2019-02-27 10:39 | Emergency (ER) | payer SELFPAY ==
--- NOTE | 2019-02-27 11:38 | Emergency Department Report ---
ED Lower Extremity HPI - General Chief Complaint: Extremity Problem,Nontraumatic Stated Complaint: BLOOD CLOT IN LEFT LEG Time Seen by Provider: 02/27/19 11:19 Source: patient Mode of arrival: Ambulatory Limitations: No Limitations - History of Present Illness Initial Comments: Mrs. Chapman is a healthy 48-year-old female who presents with left calf pain. She injured her left calf pain 2 weeks ago. She stated she stepped wrong. She's had pain and swelling ever since. 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 Pain is worse to palpation. Pain radiates to the left ankle. She denies chest pain. No shortness of breath. In November she had a heart attack. MD Complaint: other ("stepped wrong") -: Sudden, week(s) (2) Injury: Leg: Left (calf) Type of Injury: inversion, eversion Severity: moderate Worsens With: movement, palpation - Related Data Previous Rx's Medication Instructions Recorded Last Taken Type Aspirin EC [Aspirin Enteric Coated 325 mg PO QDAY #30 tablet 12/03/18 Unknown Rx TAB] AtorvaSTATin [Lipitor] 80 mg PO QHS #90 tablet 12/03/18 Unknown Rx Carvedilol [Coreg] 3.125 mg PO BID #60 tablet 12/03/18 Unknown Rx Clopidogrel [Plavix] 75 mg PO QDAY #30 tablet 12/03/18 Unknown Rx Loperamide [Imodium] 2 mg PO Q2H PRN #30 capsule 12/03/18 Unknown Rx methOCARBAMOL [Robaxin TAB] 500 mg PO Q6H PRN #10 tablet 12/26/18 Unknown Rx traMADol [Ultram] 50 mg PO Q6HR PRN #12 tablet 12/26/18 Unknown Rx Allergies Allergy/AdvReac Type Severity Reaction Status Date / Time iodine Allergy Unknown Verified 08/27/14 13:28 ED Review of Systems ROS: Stated complaint: BLOOD CLOT IN LEFT LEG Other details as noted in HPI Comment: All other systems reviewed and negative Constitutional: denies: fever, malaise Respiratory: denies: cough Cardiovascular: denies: chest pain ED Past Medical Hx - Past Medical History Previous Medical History?: Yes Hx Hypertension: Yes Hx Heart Attack/AMI: Yes Hx Congestive Heart Failure: No Hx Diabetes: No Hx Asthma: No Hx COPD: No - Surgical History Past Surgical History?: Yes Additional Surgical History: Cardiac stents - Social History Smoking Status: Former Smoker Substance Use Type: Marijuana - Medications Home Medications: Home Medications Medication Instructions Recorded Confirmed Last Taken Type Aspirin EC [Aspirin Enteric Coated 325 mg PO QDAY #30 tablet 12/03/18 Unknown Rx TAB] AtorvaSTATin [Lipitor] 80 mg PO QHS #90 tablet 12/03/18 Unknown Rx Carvedilol [Coreg] 3.125 mg PO BID #60 tablet 12/03/18 Unknown Rx Clopidogrel [Plavix] 75 mg PO QDAY #30 tablet 12/03/18 Unknown Rx Loperamide [Imodium] 2 mg PO Q2H PRN #30 capsule 12/03/18 Unknown Rx methOCARBAMOL [Robaxin TAB] 500 mg PO Q6H PRN #10 tablet 12/26/18 Unknown Rx traMADol [Ultram] 50 mg PO Q6HR PRN #12 tablet 12/26/18 Unknown Rx ED Physical Exam - General Limitations: No Limitations General appearance: alert, in no apparent distress - Head Head exam: Present: atraumatic, normocephalic - Eye Eye exam: Present: normal appearance - ENT ENT exam: Present: mucous membranes moist - Neck Neck exam: Present: normal inspection, full ROM - Respiratory Respiratory exam: Present: normal lung sounds bilaterally. Absent: respiratory distress, wheezes, rales, rhonchi - Cardiovascular Cardiovascular Exam: Present: regular rate, normal rhythm, normal heart sounds. Absent: systolic murmur, diastolic murmur, rubs, gallop - GI/Abdominal GI/Abdominal exam: Present: soft, normal bowel sounds. Absent: distended, tenderness, guarding, rebound - Extremities Exam Extremities exam: Present: full ROM, tenderness (left calf tenderness), other (intact pedal pulses). Absent: pedal edema, joint swelling - Neurological Exam Neurological exam: Present: alert, oriented X3 - Psychiatric Psychiatric exam: Present: normal affect, normal mood - Skin Skin exam: Present: warm, dry, intact, normal color. Absent: rash ED Course Vital Signs 02/27/19 10:43 Temperature 98.1 F Pulse Rate 91 H Respiratory 16 Rate Blood Pressure 124/85 O2 Sat by Pulse 98 Oximetry ED Lower Extremity MDM - Radiology Data Radiology results: report reviewed left calf strain, Duplex US negative for DVT Critical care attestation.: If time is entered above; I have spent that time in minutes in the direct care of this critically ill patient, excluding procedure time. ED Disposition Clinical Impression: Strain of calf muscle Disposition: DC-01 TO HOME OR SELFCARE Is pt being admited?: No Does the pt Need Aspirin: No Condition: Stable Instructions: Muscle Strain (ED) Referrals: DENNY CASE MD [Staff Physician] - 3-5 Days
--- NOTE | 2019-02-27 12:57 | Vascular Lab Report ---
PROCEDURE: VL VENOUS DUPLEX LE LT TECHNIQUE: Motley scale, color and pulsed Doppler ultrasound with color flow and spectral analysis eval uation of left lower extremity was performed to assess for deep vein thrombosis. HISTORY: left leg pain swelling COMPARISONS: None currently available. FINDINGS: LEFT extremity: There is normal grayscale appearance and compressibility. Normal phasic pulsed Doppler and normal col or Doppler flow are visualized. The interrogated vessels show normal augmentation. IMPRESSION: * No evidence for DVT. This document is electronically signed by Bucky Daugherty MD., February 27 2019 12:55:15 PM ET
[2019-02-27 13:14] VITALS: BP 106/62
== END 2019-02-27 13:09 | disposition home or self-care (01) ==
LOC: ED 10:39
DX: S86.812A Strain of other muscle(s) and tendon(s) at lower leg level, left leg, initial encounter (principal); I10 Essential (primary) hypertension; F12.10 Cannabis abuse, uncomplicated; Z95.5 Presence of coronary angioplasty implant and graft; I25.2 Old myocardial infarction; Z87.891 Personal history of nicotine dependence; Z91.018 Allergy to other foods; X58.XXXA Exposure to other specified factors, initial encounter; Y93.01 Activity, walking, marching and hiking; Y92.89 Other specified places as the place of occurrence of the external cause; Y99.8 Other external cause status
CPT/HCPCS: 99283

== ENCOUNTER 2020-12-12 20:45 | Emergency (ER) | payer BC ==
[2020-12-12] MEDS ORDERED: SODIUM CHLORIDE 0.9% 1000 ML 1,000 ML IV ONE (20:56)
[2020-12-12] MEDS ORDERED: ONDANSETRON 4 MG/2 ML INJ IV ONE (20:56)
--- NOTE | 2020-12-12 21:00 | Event Note ---
ED Screening Note Date of service: 12/12/20 Time: 20:58 ED Screening Note: 50 yr old presents c/o feeling bad. 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 She reports nausea, diaphoresis, chills, and periumbilical pain. She states she feels same as when she had IA in 2019. She denies any cp or sob today. She states she has been compliant with all her meds. 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 Further treatment and workup at subsequent clinical providers discretion. Patient/guardian urged not to elope from the ED as their condition may be serious if not clinically assessed and managed. Initial orders include: Cardiac w/u
[2020-12-12 21:29] LABS: Basophils % (Auto) 0.2 % (0.0-1.8); Eosinophils % (Auto) 0.1 % (0.0-4.3); Hematocrit 43.1 % (30.3-42.9); Hemoglobin 14.4 gm/dl (10.1-14.3); Lymphocytes # (Auto) 1.9 K/mm3 (1.2-5.4); Lymphocytes % (Auto) 12.5 % (13.4-35.0); Mean Corpuscular HGB Conc 33 % (30-34); Mean Corpuscular Volume 98 fl (79-97); Monocytes # (Auto) 0.4 K/mm3 (0.0-0.8); Monocytes % (Auto) 2.8 % (0.0-7.3); Red Blood Count 4.42 M/mm3 (3.65-5.03); Red Cell Distribution Width 13.9 % (13.2-15.2)
[2020-12-12 21:38] LABS: Platelet Count 383 K/mm3 (140-440)
[2020-12-12 21:54] LABS: Alanine Aminotransferase 17 units/L (7-56); Blood Urea Nitrogen 14 mg/dL (7-17); Calcium 10.6 mg/dL (8.4-10.2); Hemolysis Index 175
--- NOTE | 2020-12-12 21:56 | Emergency Department Report ---
ED General Adult HPI - General Chief complaint: Weakness Stated complaint: NAUSEA,CHILLS, OVER HEATING Time Seen by Provider: 12/12/20 21:20 Source: patient Mode of arrival: Ambulatory Limitations: No Limitations - History of Present Illness Initial comments: Patient is 50 years old female with history of hypertension, diabetes and coronary artery disease status post stent. Patient presented to the ER stating that she felt bad all of a sudden started having some chills abdominal pain, nausea and diarrhea. Patient stated the symptoms started just prior to coming to the ER. Patient informed the nurse that this is the same symptom that she had when she had her heart attack last time. Patient currently denying any chest pain or shortness of breath. Patient was vomiting in the ER and given Zofran. - Related Data Previous Rx's Medication Instructions Recorded Last Taken Type Aspirin EC [Ecotrin] 325 mg PO QDAY #30 tablet 12/03/18 Unknown Rx AtorvaSTATin [Lipitor] 80 mg PO QHS #90 tablet 12/03/18 Unknown Rx Clopidogrel [Plavix] 75 mg PO QDAY #30 tablet 12/03/18 Unknown Rx Loperamide [Imodium] 2 mg PO Q2H PRN #30 capsule 12/03/18 Unknown Rx carvediloL [Coreg] 3.125 mg PO BID #60 tablet 12/03/18 Unknown Rx methOCARBAMOL [Robaxin TAB] 500 mg PO Q6H PRN #10 tablet 12/26/18 Unknown Rx traMADoL [Ultram] 50 mg PO Q6HR PRN #12 tablet 12/26/18 Unknown Rx Ciprofloxacin HCl [Ciprofloxacin 500 mg PO Q12HR #14 tab 12/13/20 Unknown Rx TAB] Ondansetron [Zofran Odt] 4 mg PO Q8HR PRN #14 tab.rapdis 12/13/20 Unknown Rx metroNIDAZOLE [Flagyl] 500 mg PO Q12HR #14 tab 12/13/20 Unknown Rx Allergies Allergy/AdvReac Type Severity Reaction Status Date / Time iodine Allergy Unknown Verified 08/27/14 13:28 ED Review of Systems ROS: Stated complaint: NAUSEA,CHILLS, OVER HEATING Other details as noted in HPI Comment: All other systems reviewed and negative Constitutional: chills. denies: fever Respiratory: denies: cough, orthopnea, shortness of breath, SOB with exertion, SOB at rest, wheezing Cardiovascular: denies: chest pain, palpitations Gastrointestinal: abdominal pain, nausea, vomiting, diarrhea Musculoskeletal: denies: back pain Neurological: denies: headache, weakness, numbness, paresthesias, confusion ED Past Medical Hx - Past Medical History Previous Medical History?: Yes Hx Hypertension: Yes Hx Heart Attack/AMI: Yes Hx Congestive Heart Failure: No Hx Diabetes: Yes Hx Asthma: No Hx COPD: No - Surgical History Past Surgical History?: Yes Additional Surgical History: Cardiac stents - Social History Smoking Status: Never Smoker Substance Use Type: None - Medications Home Medications: Home Medications Medication Instructions Recorded Confirmed Last Taken Type Aspirin EC [Ecotrin] 325 mg PO QDAY #30 tablet 12/03/18 Unknown Rx AtorvaSTATin [Lipitor] 80 mg PO QHS #90 tablet 12/03/18 Unknown Rx Clopidogrel [Plavix] 75 mg PO QDAY #30 tablet 12/03/18 Unknown Rx Loperamide [Imodium] 2 mg PO Q2H PRN #30 capsule 12/03/18 Unknown Rx carvediloL [Coreg] 3.125 mg PO BID #60 tablet 12/03/18 Unknown Rx methOCARBAMOL [Robaxin TAB] 500 mg PO Q6H PRN #10 tablet 12/26/18 Unknown Rx traMADoL [Ultram] 50 mg PO Q6HR PRN #12 tablet 12/26/18 Unknown Rx Ciprofloxacin HCl [Ciprofloxacin 500 mg PO Q12HR #14 tab 12/13/20 Unknown Rx TAB] Ondansetron [Zofran Odt] 4 mg PO Q8HR PRN #14 tab.rapdis 12/13/20 Unknown Rx metroNIDAZOLE [Flagyl] 500 mg PO Q12HR #14 tab 12/13/20 Unknown Rx ED Physical Exam - General Limitations: No Limitations General appearance: alert, in no apparent distress - Head Head exam: Present: atraumatic, normocephalic, normal inspection - Eye Eye exam: Present: normal appearance, PERRL - ENT ENT exam: Present: normal exam, normal orophraynx, mucous membranes moist - Neck Neck exam: Present: normal inspection, full ROM. Absent: tenderness, meningismus - Respiratory Respiratory exam: Present: normal lung sounds bilaterally - Cardiovascular Cardiovascular Exam: Present: regular rate, normal rhythm, normal heart sounds - GI/Abdominal GI/Abdominal exam: Present: soft, normal bowel sounds. Absent: distended, tenderness, guarding, rebound, rigid, organomegaly, mass, bruit, pulsatile mass, hernia - Extremities Exam Extremities exam: Present: normal inspection, full ROM, normal capillary refill. Absent: tenderness, pedal edema, calf tenderness - Back Exam Back exam: Present: normal inspection, full ROM. Absent: CVA tenderness (R), CVA tenderness (L) - Neurological Exam Neurological exam: Present: alert, oriented X3, CN II-XII intact, normal gait, reflexes normal. Absent: motor sensory deficit - Psychiatric Psychiatric exam: Present: normal mood - Skin Skin exam: Present: warm, intact, normal color ED Course Vital Signs 12/12/20 12/12/20 12/13/20 20:52 21:07 02:12 Temperature 98.9 F Pulse Rate 76 73 Respiratory 16 17 16 Rate Blood Pressure 157/70 Blood Pressure 152/91 [Right] O2 Sat by Pulse 100 98 100 Oximetry ED Medical Decision Making - Lab Data Result diagrams: 12/12/20 21:05 12/12/20 21:05 - EKG Data -: EKG Interpreted by Nm EKG shows normal: sinus rhythm Rate: normal - EKG Data Interpretation: no acute changes - Radiology Data Radiology results: report reviewed - Medical Decision Making Patient is 50 years old female with history of hypertension, diabetes and coronary artery disease status post stent. Patient presented to the ER stating that she felt bad all of a sudden started having some chills abdominal pain, nausea and diarrhea. Patient stated the symptoms started just prior to coming to the ER. Patient informed the nurse that this is the same symptom that she had when she had her heart attack last time. Patient currently denying any chest pain or shortness of breath. Patient was vomiting in the ER and given Z ofran. Patient received normal saline, and Zofran. Patient stated that she is feeling much better. EKG is unremarkable. Labs reviewed including negative troponin x2. CT abdomen and pelvis showed evidence of enteritis. Patient received Zosyn in the ER. And given prescription for Flagyl and ciprofloxacin and advised to follow-up with her primary doctor in the next 2 to 3 days and to return to the ER if he develop any new symptoms. Critical care attestation.: If time is entered above; I have spent that time in minutes in the direct care of this critically ill patient, excluding procedure time. ED Disposition Clinical Impression: Abdominal pain, Gastroenteritis Disposition: DC- TO HOME OR SELFCARE Is pt being admited?: No Condition: Stable Instructions: Abdominal Pain, Adult Prescriptions: Ciprofloxacin HCl [Ciprofloxacin TAB] 500 mg PO Q12HR #14 tab metroNIDAZOLE [Flagyl] 500 mg PO Q12HR #14 tab Ondansetron [Zofran Odt] 4 mg PO Q8HR PRN #14 tab.rapdis PRN Reason: Nausea And Vomiting Referrals: NANCY SANCHEZ MD [Primary Care Provider] - 3-5 Days
[2020-12-12 21:59] LABS: BUN/Creatinine Ratio 23
[2020-12-12 22:00] LABS: Bilirubin,Direct < 0.2 mg/dL (0-0.2)
--- NOTE | 2020-12-12 22:03 | XRay Report ---
CHEST 2 VIEWS INDICATION / CLINICAL INFORMATION: n/v. Chest pain FINDINGS: SUPPORT DEVICES: None. HEART / MEDIASTINUM: No significant abnormality. LUNGS / PLEURA: No significant pulmonary or pleural abnormality. No pneumothorax. ADDITIONAL FINDINGS: No significant additional findings. IMPRESSION: 1. No acute findings. Signer Name: Johnny Castellano MD Signed: 12/12/2020 9:59 PM Workstation Name: [id number]
--- NOTE | 2020-12-13 01:39 | Cat Scan Report ---
CT ABDOMEN AND PELVIS WITH CONTRAST INDICATION / CLINICAL INFORMATION: abdominal pain. TECHNIQUE: Axial CT images were obtained through the abdomen and pelvis after 100 mL Omnipaque [address] scans at this location are performed using CT dose reduction for ALARA by means of automated exposure control. COMPARISON: None available. FINDINGS: LOWER CHEST: No significant abnormality. LIVER: No significant abnormality. GALLBLADDER: No significant abnormality. BILE DUCTS: No significant abnormality. PANCREAS: No significant abnormality. SPLEEN: No significant abnormality. ADRENALS: No significant abnormality. RIGHT KIDNEY / URETER: No significant abnormality. LEFT KIDNEY / URETER: No significant abnormality. STOMACH / SMALL BOWEL: Fluid-filled, nondilated loops of small bowel without obstruction. COLON: Fluid-filled, nondilated colon. No inflammation. APPENDIX: No significant abnormality. PERITONEUM: No free fluid. No free air. No fluid collection. LYMPH NODES: No significant adenopathy. AORTA / ARTERIES: No significant abnormality. IVC / VEINS: No significant abnormality. URINARY BLADDER: No significant abnormality. REPRODUCTIVE ORGANS: No significant abnormality. ADDITIONAL FINDINGS: Benign-appearing cystic lesion in the left periaortic region near the aortic hia tus. SKELETAL SYSTEM: No significant abnormality. IMPRESSION: 1. Fluid-filled, nondilated loops of small bowel and colon which can be seen in enteritis. No bowel o bstruction. Signer Name: Octaviano Arce MD Signed: 12/13/2020 1:35 AM Workstation Name: [id number]
[2020-12-13] MEDS ORDERED: PIPERACILLIN/TAZOBACTAM 3.375 3.375 GM/50 ML BAG IV ONE (01:47)
[2020-12-13 02:14] VITALS: BP 152/91
== END 2020-12-13 02:17 | disposition home or self-care (01) ==
LOC: ED 20:45
DX: K52.9 Noninfective gastroenteritis and colitis, unspecified (principal); R10.9 Unspecified abdominal pain; I10 Essential (primary) hypertension; I25.2 Old myocardial infarction; E11.9 Type 2 diabetes mellitus without complications; I25.10 Atherosclerotic heart disease of native coronary artery without angina pectoris; Z95.5 Presence of coronary angioplasty implant and graft; Z79.899 Other long term (current) drug therapy; Z91.041 Radiographic dye allergy status
CPT/HCPCS: 36415; 71046; 74177; 80048; 80076; 83690; 84484; 84703; 85025; 93005; 96361; 96374; 96375; 99284; J2405; J2543; J7030; Q9967